=== PATIENT | male | born 1955 | race Caucasian/White ===

== ENCOUNTER 2017-07-04 07:42 | Day surgery (SDC) | payer OTHER ==
[2017-07-04] MEDS ORDERED: NS 500 ML IV ONE (07:43)
[2017-07-04] MEDS ORDERED: BENZOCAINE UNIT DOSE SPRAY HURRICAINE MM ONE (07:43)
[2017-07-04] MEDS ORDERED: MIDAZOLAM 2 MG/2 ML VIAL IVP ONE (07:43)
[2017-07-04] MEDS ORDERED: fentaNYL 100 MCG/2 ML INJ IVP ONE (07:43)
[2017-07-04] MEDS ORDERED: ATROPINE SULFATE 1 MG/10 ML SYR IVP ONE (07:43)
--- NOTE | 2017-07-04 08:01 | CPEKG ---
Heart Rate: 138 RR Interval: 435 QRSD Interval: 90 QT Interval: 316 QTC Interval: 479 QRS [place]: -18 T Wave [place]: 181 EKG Severity - ABNORMAL ECG - EKG Impression: ATRIAL FIBRILLATION, V-RATE 96-195 EKG Impression: PROBABLE LVH WITH SECONDARY REPOL ABNRM EKG Impression: ST DEPRESSION, CONSIDER ISCHEMIA, ANT-LAT LDS EKG Impression: BORDERLINE PROLONGED QT INTERVAL Electronically Signed By: Armen Pickens 04-Jul-2017 12:29:24
[2017-07-04 08:23] LABS: INR 1.57 (0.83-1.16); PROTIME(PATIENT) 18.9 SEC (12.0-15.0)
[2017-07-04] MEDS ORDERED: ETOMIDATE 40 MG/20 ML INJ ONE (08:30)
[2017-07-04] MEDS ORDERED: RIVAROXABAN 20 MG TAB PO ONE (08:30)
--- NOTE | 2017-07-04 08:33 | PDPROPOC ---
Sedation Plan of Care Sedation Plan of Care: vital signs stable, mental status noted, patient educated of risks, benefits, alternatives, patient can tolerate sedation ASA Classification: ASA 3 Planned drugs: fentanyl, midazolam Mallampati Score: Class 3 Mallampati Reference Image: Patient passed 3-3-2 rule?: Yes
--- NOTE | 2017-07-04 08:34 | PDHPUP ---
History & Physical Update H&P update statement: This history and physical update is based on an assessment of the patient which was completed after admission or registration (within 24 hours), but prior to the surgery/procedure. H&P update: H&P reviewed & patient examined, no change in patient's condition since H&P completed H&P changes: patient remains in atrial fibrillation with RVR fatigued and short of breath. He needs XOCHITL guided cardioversion.
--- NOTE | 2017-07-04 09:21 | PDTEE1 ---
XOCHITL Cardioversion Procedure Procedure: electrical cardioversion, transesophageal echo Indications: atrial fibrillation Consent: signed and in chart Anticoagulation: xarelto Procedural Details: Pads were placed in anterior-posterior position. XOCHITL probe was advanced and standard images obtained. There is no evidence of left atrial or left atrial appendage thrombus. Synchronized cardioversion attempt #1: other (250 Joules) Results: normal sinus rhythm Conclusions: successful XOCHITL cardioversion
--- NOTE | 2017-07-04 09:42 | CPEKG ---
Heart Rate: 71 RR Interval: 845 P-R Interval: 196 QRSD Interval: 92 QT Interval: 376 QTC Interval: 409 P [place]: 39 QRS [place]: -35 T Wave [place]: 130 EKG Severity - ABNORMAL ECG - EKG Impression: SINUS RHYTHM EKG Impression: ATRIAL PREMATURE COMPLEX EKG Impression: PROBABLE INFERIOR INFARCT, OLD EKG Impression: NONSPECIFIC T ABNORMALITIES, ANT-LAT LEADS EKG Impression: SINUS RHYTHM HAS REPLACED ATRIAL FIBRILLATION EKG Impression: ST/T WAVE CHANGES CONTINUE TO BE NOTED Electronically Signed By: Armen Pickens 04-Jul-2017 12:29:54
[2017-07-04 12:36] VITALS: BP 136/94
--- NOTE | 2017-07-04 15:06 | ECHO ---
[email or web address] [place] [id number] Main: [phone] Fax: Transesophageal Echocardiography Name: MARCELO PANDYA MR#: [id number] Study Date: 07/04/2017 Study Time: 09:00 AM Date of : 1955 Age: 62 year(s) Height: ( ) Weight: ( ) BSA: Gender: Male Examination: XOCHITL Indication: PRE CARDIOVERSION Image Quality: Adequate Contrast: Requested by: Danny Georges Heart Rate: Rhythm: BP: / Procedure Staff [employer] Supervisor: Micki Wheeler [facility] Reading Physician: Danny Georges MD Requesting Provider: XOCHITL Exam Details Patient Consent: Risks, alternatives of procedure explained to patient, informed consent obtained. Measurements: Chambers Valvular Assessment AV/MV Valvular Assessment TV/PV Normal Normal Normal Name Value Range Name Value Range Name Value Range Visual EF: 40 % Additional Measurements: Findings: l1n (No Signature Object) Patient: MARCELO PANDYA Study Date: 07/04/2017 Page 1 of 1 09:00 AM [id number]
== END 2017-07-04 13:00 | disposition home or self-care (01) ==
LOC: FCATH 07:42
PROVIDERS: ATTEND Internal Medicine Cardiovascular Disease
PROC: B245ZZ4 Ultrasonography of Left Heart, Transesophageal (ICD-10-PCS; principal; 2017-07-04)
PROC: 5A2204Z Restoration of Cardiac Rhythm, Single (ICD-10-PCS; principal; 2017-07-04)
DX: I48.0 Paroxysmal atrial fibrillation (principal); R55 Syncope and collapse; I10 Essential (primary) hypertension
CPT/HCPCS: J0461; J2250; J3010

== ENCOUNTER 2017-07-05 10:31 | Emergency (ER) | payer OTHER ==
--- NOTE | 2017-07-05 10:49 | CPEKG ---
Heart Rate: 64 RR Interval: 938 P-R Interval: 196 QRSD Interval: 100 QT Interval: 424 QTC Interval: 438 P [place]: 20 QRS [place]: -30 T Wave [place]: 105 EKG Severity - ABNORMAL ECG - EKG Impression: SINUS RHYTHM EKG Impression: PROBABLE INFERIOR INFARCT, AGE INDETERMINATE EKG Impression: NONSPECIFIC T ABNORMALITIES, ANT-LAT LEADS Electronically Signed By: El Palmer 07-Jul-2017 17:30:26
--- NOTE | 2017-07-05 11:04 | EDPHY ---
H & P Stated Complaint: c/o headaches since cardioverted yesterday out of a-fib Time Seen by Provider: 07/05/17 10:51 HPI/ROS: CHIEF COMPLAINT: Headache HISTORY OF PRESENT ILLNESS: Patient is a 62-year-old man with a recent diagnosis of atrial fibrillation recently started on Xarelto. Yesterday he was cardioverted by Dr. Georges. A few hours after the cardioversion he developed a mild diffuse headache. It persisted all night. It is slightly improved today after taking Tylenol. No vision changes. No weakness. REVIEW OF SYSTEMS: Constitutional: denies: chills, fever, recent illness, recent injury EENTM: denies: blurred vision, double vision, nose congestion Respiratory: denies: cough, shortness of breath Cardiac: denies: chest pain, irregular heart rate, lightheadedness, palpitations Gastrointestinal/Abdominal: denies: abdominal pain, diarrhea, nausea, vomiting, blood streaked stools Genitourinary: denies: dysuria, frequency, hematuria, pain Musculoskeletal: denies: joint pain, muscle pain Skin: denies: lesions, rash, jaundice, bruising Neurological: See HPI denies: numbness, paresthesia, tingling, dizziness, weakness Hematologic/Lymphatic: denies: blood clots, easy bleeding, easy bruising Immunologic/allergic: denies: HIV/AIDS, transplant EXAM: GENERAL: Well-appearing, well-nourished and in no acute distress. HEAD: Atraumatic, normocephalic. EYES: Pupils equal round and reactive to light, extraocular movements intact, sclera anicteric, conjunctiva are normal. ENT: TMs normal, nares patent, oropharynx clear without exudates. Moist mucous membranes. NECK: Normal range of motion, supple without lymphadenopathy or JVD. LUNGS: Breath sounds clear to auscultation bilaterally and equal. No wheezes rales or rhonchi. HEART: Regular rate and rhythm without murmurs, rubs or gallops. ABDOMEN: Soft, nontender, normoactive bowel sounds. No guarding, no rebound. No masses appreciated. BACK: No CVA tenderness, no spinal tenderness, step-offs or deformities EXTREMITIES: Normal range of motion, no pitting or edema. No clubbing or cyanosis. NEUROLOGICAL: Cranial nerves II through XII grossly intact. Normal speech, normal gait. 5/5 strength, normal movement in all extremities, normal sensation PSYCH: Normal mood, normal affect. SKIN: Warm, dry, normal turgor, no visible rashes or lesions. Source: Patient Exam Limitations: No limitations - Personal History Current Tetanus Diphtheria and Acellular Pertussis (TDAP): No - Medical/Surgical History Hx Asthma: No Hx Chronic Respiratory Disease: No Hx Diabetes: No Hx Cardiac Disease: No Hx Renal Disease: No Hx Cirrhosis: No Hx Alcoholism: No Hx HIV/AIDS: No Hx Splenectomy or Spleen Trauma: No Other PMH: a-fib, HTN, cardioversion 06/2017, back surgery, verocelectomy, - Family History Significant Family History: No pertinent family hx - Social History Smoking Status: Never smoked Alcohol Use: None Drug Use: None Constitutional: Initial Vital Signs Temperature (C) 37 C 07/05/17 10:34 Heart Rate 67 07/05/17 10:34 Respiratory Rate 18 07/05/17 10:34 Blood Pressure 154/95 H 07/05/17 10:34 O2 Sat (%) 97 07/05/17 10:34 O2 Delivery Mode Room Air Allergies/Adverse Reactions: amlodipine [From Norvasc] Allergy (Verified 07/04/17 08:18) Rash ampicillin Allergy (Verified 07/04/17 08:18) Rash azithromycin [From Zithromax] Allergy (Verified 07/04/17 08:18) Rash Home Medications: Medication Instructions Recorded Digoxin 07/04/17 Fluticasone Nasal [Flonase Nasal 07/04/17 [place]] Losartan/Hydrochlorothiazide 07/04/17 [Losartan-Hctz 100-25 mg Tab] Omeprazole 07/04/17 Rivaroxaban [Xarelto] 07/04/17 Venlafaxine 75MG (*) 07/04/17 Medical Decision Making - Diagnostics EKG Interpretation: An EKG obtained and was read and documented in trace view. Please see trace view for full reading and report. Sinus rhythm, no acute ischemic changes, similar to previous Imaging: Discussed imaging studies w/ house calls nurse practitioner Radiologist ED Course/Re-evaluation: 12:30 p[address]. we discussed the CT results. The patient is relieved. He is feeling much better. He would like to go home. His is here to take him. He drowsy after Benadryl. Differential Diagnosis: Partial list of the Differential diagnosis considered include but were not limited to; headache, hemorrhage and although unlikely based on the history and physical exam, I also considered ischemia, infection, arrhythmia. I discussed these differential diagnoses and the plan with the patient as well as the usual and expected course. The patient understands that the diagnosis is provisional and that in medicine we are not always correct and that further workup is often warranted. Usual and customary warnings were given. All of the patient's questions were answered. The patient was instructed to return to the emergency department should the symptoms at all worsen or return, otherwise to followup with the physician as we discussed. - Data Points Medications Given: Discontinued Medications Diphenhydramine HCl (Benadryl Injection) 25 mg IVP EDNOW ONE Stop: 07/05/17 11:56 Last Admin: 07/05/17 11:56 Dose: 25 mg Metoclopramide HCl (Reglan Injection) 10 mg IVP EDNOW ONE Stop: 07/05/17 11:40 Last Admin: 07/05/17 11:41 Dose: 10 mg Departure - Departure Disposition: Home, Routine, Self-Care Clinical Impression: Headache Qualifiers: Headache type: unspecified Headache chronicity pattern: acute headache Intractability: not intractable Qualified Code(s): R51 - Headache Condition: Fair Instructions: Acute Headache (ED) Referrals: BRAD WICK [Primary Care Provider] - As per Instructions
[2017-07-05] MEDS ORDERED: METOCLOPRAMIDE 10 MG/2 ML VIAL IVP ONE (11:39)
[2017-07-05 12:45] VITALS: BP 148/93
== END 2017-07-05 12:45 | disposition home or self-care (01) ==
DX: R51 Headache (principal); I10 Essential (primary) hypertension
CPT/HCPCS: 96374; J1200; J2765